=== PATIENT | male | born 1960 | race African-American/Black ===

== ENCOUNTER 2017-05-29 22:00 | Emergency (ER) | payer MEDICAID, OTHER ==
[~2017-05-29] VITALS: Ht 182.9 cm; Wt 106.6 kg
[2017-05-29 22:06] VITALS: BP 115/83
[2017-05-30] MEDS ORDERED: LIDOCAINE 1% HCL (LOCAL ANESTH.) INJ 20ML MDV ONE (00:18)
[2017-05-30] MEDS ORDERED: cefTRIAXone SOD 1,000 MG VL IM ONE (00:30)
[2017-05-30] MEDS ORDERED: TETANUS-DIPTH-ACEL PERTUSSIS 0.5ML SYRG IM ONE (00:30)
== END 2017-05-30 00:42 | disposition home or self-care (01) ==
LOC: ER 22:00
DX: S81.811A Laceration without foreign body, right lower leg, initial encounter (principal); X58.XXXA Exposure to other specified factors, initial encounter; Y93.89 Activity, other specified; Y99.8 Other external cause status; Y92.89 Other specified places as the place of occurrence of the external cause; F17.210 Nicotine dependence, cigarettes, uncomplicated; Z23 Encounter for immunization
CPT/HCPCS: 12002; 90471; 90715; 96372; 99284; J0696; J2001

== ENCOUNTER 2017-05-31 17:02 | Emergency (ER) | payer OTHER ==
[~2017-05-31] VITALS: Ht 182.9 cm; Wt 106.1 kg
[2017-05-31 18:55] VITALS: BP 128/75
[2017-05-31] MEDS ORDERED: LIDOCAINE 1% HCL (LOCAL ANESTH.) INJ 20ML MDV IN ONE (19:30)
== END 2017-05-31 19:45 | disposition home or self-care (01) ==
LOC: ER 17:10
DX: S81.011A Laceration without foreign body, right knee, initial encounter (principal); W22.8XXA Striking against or struck by other objects, initial encounter; Y93.89 Activity, other specified; Y92.89 Other specified places as the place of occurrence of the external cause; Y99.8 Other external cause status
CPT/HCPCS: 12002